=== PATIENT | female | born 1990 | race American Indian/Alaskan Native ===

== ENCOUNTER 2016-09-30 16:39 | Emergency (ER) | payer SELFPAY ==
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
[2016-09-30] MEDS ORDERED: XYLOCAINE 1%/ EPI 1:100,000 INFILTRATI ONE (20:17)
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
[2016-09-30 22:36] VITALS: BP 105/75
== END 2016-09-30 21:07 | disposition home or self-care (01) ==
LOC: EEVIPCON 16:39 → ED 16:39
DX: S61.411A Laceration without foreign body of right hand, initial encounter (principal); Z33.1 Pregnant state, incidental; W22.8XXA Striking against or struck by other objects, initial encounter; Y93.89 Activity, other specified; Y99.8 Other external cause status; Y92.89 Other specified places as the place of occurrence of the external cause
CPT/HCPCS: 36415; 84703

== ENCOUNTER 2016-10-10 16:53 | Emergency (ER) | payer SELFPAY ==
[2016-10-10 17:00] VITALS: BP 110/58
--- NOTE | 2016-10-10 17:14 | Emergency Department Report ---
Suture/Staple Removal - HPI Chief Complaint: Laceration/Recheck/Suture Stated Complaint: STITCH REMOVAL Time Seen by Provider: 10/10/16 16:57 When Sutures or Stefania Placed: 8-10 Days Ago Wound Location: R hand ED Review of Systems ROS: Stated complaint: STITCH REMOVAL Other details as noted in HPI Comment: All other systems reviewed and negative Constitutional: denies: chills, fever Musculoskeletal: other (decrease in swelling ) Skin: other (deneis drainage ). denies: change in color ED Past Medical Hx - Past Medical History Previous Medical History?: No - Surgical History Past Surgical History?: Yes Additional Surgical History: C-Sec x 1 - Social History Smoking Status: Never Smoker Substance Use Type: None Suture Removal Exam - Exam General: Vital signs noted. No distress. Alert and acting appropriately. [address] of R doral hand, no sings of local skin infection. full rom noted. Wound: No Pathologic Erythema, No Tenderness, No Drainage, No Pus, No Wound Dehiscence Other Systems: All other systems reviewed and are unremarkable. ED Course Vital Signs 10/10/16 16:57 Temperature 98.1 F Pulse Rate 72 Respiratory 18 Rate Blood Pressure 110/58 O2 Sat by Pulse 99 Oximetry - Reevaluation(s) Reevaluation #1: 10/10/16 17:14 pt tolerated suture removal well. pt states her td vaccine is utd - Procedure Description Procedures done: 3 sutures removed. skin remains intact. pt tolerated the procedure well. site covered with steristrips - Pulse Oximetry Interpretation Digit-Finger Initial Pulse Oximetry Readin Actions Taken: none ED Recheck MDM - Differential Diagnosis Wound Recheck, Suture/Staple Removal Critical Care Time: No Critical care attestation.: If time is entered above; I have spent that time in minutes in the direct care of this critically ill patient, excluding procedure time. ED Disposition Clinical Impression: Visit for suture removal Disposition: - TO HOME OR SELFCARE Is pt being admited?: No Does the pt Need Aspirin: No Condition: Stable Instructions: Suture Removal (ED) Additional Instructions: Follow up with [facility] for your Referrals: ROXANA HAHN MD [Staff Physician] - 3-5 Days [facility] [Provider Group] - 3-5 Days [facility] [Outside] - 3-5 Days Time of Disposition: 17:17
== END 2016-10-10 17:20 | disposition home or self-care (01) ==
LOC: ED 16:53
DX: Z48.02 Encounter for removal of sutures (principal)